=== PATIENT | female | born 1965 | race African-American/Black ===

== ENCOUNTER 2025-07-27 15:19 | Emergency (ER) | payer SELFPAY ==
[~2025-07-27] VITALS: Ht 167.6 cm; Wt 75.0 kg
[2025-07-27 15:24] VITALS: O2SAT 99
[2025-07-27] MEDS ORDERED: KETOROLAC 15MG/ML VIAL IV ONE (15:45)
[2025-07-27] MEDS: SODIUM CHLORIDE 0.9% 1,000 ML IV ONE (15:45)
[2025-07-27 16:38] LABS: BASOPHILS % 0.6 % (0.0-2.0); EOSINOPHILS % 3.5 % (0.0-5.0); HEMATOCRIT. 41.0 % (36.0-48.0); HEMOGLOBIN. 13.2 g/dL (12.0-16.0); LYMPHOCYTES % 21.2 % (20.0-50.0); MEAN PLATELET VOLUME 9.0 fl (7.4-10.4); MONOCYTES % 4.6 % (2.0-8.0); NEUTROPHILS % 70.1 % (40.0-76.0); PLATELET 172 x1000/uL (130-400); RED BLOOD CELL COUNT 4.76 mill/uL (4.2-5.4); RED CELL DISTRIBUTION WIDTH 13.9 % (11.6-14.6)
[2025-07-27 17:04] LABS: UREA NITROGEN BLOOD 9 mg/dL (9-23)
[2025-07-27 17:05] LABS: CREATININE 1.2 mg/dL (0.6-1.0)
[2025-07-27 17:06] LABS: TROPONIN I HIGH SENSITIVITY < 4 ng/L (3.0-34)
[2025-07-27 17:07] LABS: ASPARTATE AMINOTRANSFERASE 25 IU/L (<34); BILIRUBIN DIRECT 0.2 mg/dL (<=3.0); BILIRUBIN TOTAL 0.6 mg/dL (0.1-1.0); PROTEIN TOTAL 7.2 g/dL (6.0-8.3)
[2025-07-27] MEDS: KETOROLAC 15MG/ML VIAL IV SCH (17:56)
[2025-07-27 18:55] VITALS: BP 119/78; PULSE 91; RESP 15; TEMP 36.4
== END 2025-07-27 18:59 | disposition home or self-care (01) ==
LOC: ER 15:19
DX: R55 Syncope and collapse (principal); R51.9 Headache, unspecified; K57.32 Diverticulitis of large intestine without perforation or abscess without bleeding; R06.02 Shortness of breath
CPT/HCPCS: 99285; 70450; 96374; 96361; 71045; 80076; 80048; 83880; 83605; 83690; 83735; 85025; 84484; 36415; 71250; 74176; 93005; J1885; J7030